=== PATIENT | male | born 1965 | race Caucasian/White ===

== ENCOUNTER 2021-08-02 14:26 | Emergency (ER) | payer SELFPAY ==
[2021-08-02 15:54] LABS: BLOOD UREA NITROGEN,BUN 16 mg/dL (7.0-18.0); CARBON DIOXIDE,CO2 24.7 mmol/L (21.0-32.0); CHLORIDE,CL 106 mmol/L (98-107); GLUCOSE RANDOM 108 mg/dL (74-106); POTASSIUM,K 3.8 mmol/L (3.5-5.1); SODIUM,NA 141 mmol/L (136-148)
--- NOTE | 2021-08-02 16:56 | CR ---
INDICATION: Chest pain TECHNIQUE: Portable upright AP view of the chest COMPARISON: None FINDINGS: The lungs are clear. There is no sizable pleural effusion or pneumothorax. The cardiomediastinal silhouette is normal. The visualized osseous structures are unremarkable. IMPRESSION: No acute intrathoracic process. Dictated by Emmanuel Vazquez MD @ 08/02/2021 4:54:57 PM (Electronically Signed)
[2021-08-02] MEDS ORDERED: Morphine 4 MG/ML Syringe IVPUSH ONE (17:49)
--- NOTE | 2021-08-02 19:44 | EDM.PDOC ---
<Reid Larios - Last Filed: 08/02/21 19:44> ED HPI GENERAL MEDICAL PROBLEM - General Chief Complaint: Chest Pain Stated Complaint: CHEST PAIN Time Seen by Provider: 08/02/21 15:51 - History of Present Illness INITIAL COMMENTS - FREE TEXT/NARRATIVE: CHIEF COMPLAINT(S): Chest pain HISTORY OF PRESENT ILLNESS: This is a 55-year-old man without any significant past medical history who comes to the emergency department with a chief complaint of chest pain. The patient states that earlier this morning he started to experience chest pain located in the central upper chest with radiation to his left arm. He states that the pain was 10 out of 10 and had 2 episodes of vomiting. He describes it as pressure and tearing pain. He states that he was given nitroglycerin and aspirin and states that it is improved since then and is now rating it as 5 out of 10. He states that it initially was not going to his back however since sitting here he has been experiencing some mid back pain in between his shoulder blades. He describes the pain as similar. He denies any relieving factors but states that deep breaths worsen it. He denies any recent travel, recent surgery, prior history of DVT or PE. He denies any significant hypertension. He denies any family history of connective tissue disease. He denies any personal history of aortic aneurysm. He denies any fever, chills, cough or any other symptoms. REVIEW OF SYSTEMS: Constitutional: Denies fever, chills. Eyes: Denies eye pain Ears, Nose, Mouth, & Throat: Denies earache Cardiovascular: Positive for central chest pain Respiratory: Denies shortness of breath Gastrointestinal: Positive for vomiting. Denies diarrhea, medic easier, abdominal pain Genitourinary: Denies hematuria Skin:Denies a rash MSK: Positive for mid back pain and left arm pain Neurological: Denies blurred vision, numbness, tingling, weakness Psychiatric: Denies depression PAST MEDICAL HISTORY: As per history of present illness and as reviewed below otherwise noncontributory. SURGICAL HISTORY: As per history of present illness and as reviewed below otherwise noncontributory. SOCIAL HISTORY: As per history of present illness and as reviewed below oth erwise noncontributory. FAMILY HISTORY: As per history of present illness and as reviewed below otherwise noncontributory. EXAMINATION OF ORGAN SYSTEMS/BODY AREAS: Constitutional: Blood pressure is 144/91, heart rate 80, respiratory rate 18 with an oxygen saturation 97% on room air. Temperature 36.4 General: Well-appearing man who is in no acute distress Psychiatric: Appropriate mood and affect. Eyes: No scleral icterus or conjunctival erythema pupils are equal round and reactive to light. Extraocular movements intact. No nystagmus noted. ENMT: Moist mucous membranes. No pharyngeal erythema Cardiovascular: Regular, rate, and rhythm. No gallops, murmurs, or rubs. Bilateral upper extremity pulses symmetric and intact. No peripheral edema. No JVD. Respiratory: Lungs clear to auscultation bilaterally. No wheezes, rales, or rhonchi. Gastrointestinal: Soft, non-tender, non-distended. Normoactive bowel sounds Genitourinary: No suprapubic tenderness Musculoskeletal: Normal range of motion. Skin: No lesions or abrasions. Neurological: Alert, GCS 15 strength and sensation grossly intact in upper and lower extremities bilaterally. MEDICAL DECISION MAKING AND COURSE IN THE ED WITH INTERPRETATION/REVIEW OF DIAGNOSTIC STUDIES: This is a 55-year-old man without any significant past medical history who comes to the emergency department with acute chest pain which was relieved by nitroglycerin. At this time we did obtain an EKG which was unremarkable and did not reveal any evidence of ischemia. Given his history will obtain a cardiac work-up. In addition given the radiation to the back will obtain a CTA of the thorax abdomen and pelvis to evaluate for aneurysm versus dissection. We will provide the patient with morphine for pain relief. The patient has already received aspirin therefore we will hold off on this at this time. We placed the patient on cardiac monitoring and pulse oximetry. Laboratory: CBC is unremarkable. CMP is unremarkable. Troponin is negative. The radiological images were viewed by myself along with reading the report from the radiologist. Chest x-ray does not reveal any acute cardiopulmonary process. Laboratory: Repeat troponin is negative. Heart Score History: Moderately Suspicious (1) ECG normal (0) Age: 45-64 (1) Risk Factors: No known risk factors (0) Initial Troponin: </= normal limit (0) Total Score: 2 At the time of signout patient's pain had improved. He was pending CTA final reports and final disposition. Patient was signed out to oncoming night team physician DISPOSITION: Patient was signed out to oncoming night team physician CONDITION: Fair PROCEDURES: None FINAL IMPRESSION(S)/DIAGNOSES: 1. Acute chest pain 2. Acute back pain Reid Larios M.D. chest pain, sternal Pain Score (Numeric/FACES): 2 - Related Data Allergies Allergy/AdvReac Type Severity Reaction Status Date / Time acetaminophen [From Percocet] Allergy Rash Verified 08/02/21 14:31 oxycodone [From Percocet] Allergy Rash Verified 08/02/21 14:31 Sulfa (Sulfonamide Allergy Cannot Verified 08/02/21 14:32 Antibiotics) Remember Home Meds: Home Meds Aspirin 1 tab PO DAILY 08/02/21 [History] Cyclobenzaprine [Flexeril] 10 mg PO TID PRN #20 tab 08/02/21 [Rx] Omeprazole Magnesium [Prilosec Otc] 20 mg PO BID #30 tablet. 08/02/21 [Rx] Past Medical History - Infectious Disease History Infectious Disease History: Reports: Measles - Past Surgical History GI Surgical History: Reports: Other (See Below) Other GI Surgeries/Procedures: Spleen Neurological Surgical History: Reports: Other (See Below) Other Neurological Surgeries/Procedures: Lower Back Social & Family History - Family History Family Medical History: No Pertinent Family History - Tobacco Use Tobacco Use Status *Q: Current Every Day Tobacco User Years of Tobacco use: 40 Packs/Tins Daily: 0.1 - Alcohol Use Days Per Week of Alcohol Use: 7 Number of Drinks Per Day: 1 Total Drinks Per Week: 7 - Recreational Drug Use Recreational Drug Use: No ED ROS GENERAL - Review of Systems Review Of Systems: See Below ED EXAM, GENERAL - Physical Exam Exam: See Below Departure - Departure Disposition: Home, Self-Care 01 Clinical Impression: Musculoskeletal back pain, Esophagitis - Discharge Information Instructions: Nonspecific Chest Pain, Adult, [id number], Esophagitis, Acute Back Pain, Adult Referrals: Dheeraj Manriquez MD [Primary Care Provider] - Forms: ED Department Discharge Additional Instructions: Your seen and evaluated in ER today secondary to pain in your chest and back. Your findings on the CAT scan revealed that you might have some inflammation of your esophagus. As we discussed, please avoid spicy food and late night meals. Please try to lift the head of your bed up slightly to decrease the amount of acid that can enter into your esophagus. You will be given a prescription for Prilosec OTC 20 mg take twice a day for 30 days. Please make an appointment to follow-up with your primary care physician this week for reevaluation and reassessment. You will also be given a prescription for cyclobenzaprine to help with your back pain. The following information is given to patients seen in the emergency department who are being discharged to home. This information is to outline your options for follow-up care. We provide all patients seen in our emergency department with a follow-up referral. The need for follow-up, as well as the timing and circumstances, are variable depending upon the specifics of your emergency department visit. If you don't have a primary care physician on staff, we will provide you with a referral. We always advise you to contact your personal physician following an emergency department visit to inform them of the circumstance of the visit and for follow-up with them and/or the need for any referrals to a consulting specialist. The emergency department will also refer you to a specialist when appropriate. This referral assures that you have the opportunity for follow-up care with a specialist. All of these measure are taken in an effort to provide you with optimal care, which includes your follow-up. Under all circumstances we always encourage you to contact your private physician who remains a resource for coordinating your care. When calling for follow-up care, please make the office aware that this follow-up is from your recent emergency room visit. If for any reason you are refused follow-up, please contact the [facility] Emergency Department at and asked to speak to the emergency department charge nurse. [facility] - [facility] [address] [place] [id number] [address] [id number] <Rajeev Alcaraz - Last Filed: 08/02/21 20:27> ED HPI GENERAL MEDICAL PROBLEM - History of Present Illness INITIAL COMMENTS - FREE TEXT/NARRATIVE: 8:21 PM: Signout received at 7 PM. Patient had CTA pending secondary to pain in his chest and back. Patient's CTA of chest abdomen pelvis reveals probable mild wall thickening of the distal esophagus and question of trace periesophageal fluid, potentially representing esophagitis. There is no evidence of aortic dissection or PE. Given CT scan findings, will resume with plan as outlined by Dr. Enriquez discharge patient to home. Patient was reevaluated by me independently and I am in agreement with Dr. Larios's assessment and plan for discharge. Patient will get started on Flexeril as a muscle relaxant for the pain in his back as well as Prilosec to assist with his esophagitis. I discussed the results and gave the patient a copy of his CT report to keep with him to take his primary care physician for further evaluation. Repeat evaluation in the ED reveals a nontoxic stable appearing individual who appears to be in good spirits. Patient's vital signs were reviewed and within normal limits. Patient's labs were reviewed and are all within normal limits. Patient has been instructed to return to the ED if he develops any new or concerning symptoms and to otherwise follow-up with primary care doctor this week for reevaluation of his symptoms. Reassessment at the time of disposition demonstrates that the patient is in no acute distress. The patient has remained stable throughout the entire ED visit and is without objective evidence for acute process requiring urgent intervention or hospitalization. The patient is stable for discharge, counseling is provided as documented above, discussed symptomatic treatment and specific conditions for return. I have spoken with the patient/caregiver and discussed todays findings, in addition to providing specific details for the plan of care. Questions are answered and there is agreement with the plan. Course - Vital Signs Last Recorded V/S: Last Vital Signs Temp 97.5 F 08/02/21 14:27 Pulse 80 08/02/21 14:27 Resp 18 08/02/21 14:27 BP 144/91 H 08/02/21 14:27 Pulse Ox 97 08/02/21 14:27 - Orders/Labs/Meds Labs: Laboratory Tests 08/02/21 08/02/21 08/02/21 Range/Units 14:40 14:40 14:40 WBC 7.13 (4.0-11.0) K/uL RBC 4.48 L (4.50-5.90) M/uL Hgb 14.6 (13.0-17.0) g/dL Hct 40.5 (38.0-50.0) % MCV 90.4 (80.0-98.0) fL MCH 32.6 H (27.0-32.0) pg MCHC 36.0 (31.0-37.0) g/dL RDW Std Deviation 41.6 (28.0-62.0) fl RDW Coeff of Yudith 13 (11.0-15.0) % Plt Count 205 (150-400) K/uL MPV 9.80 (7.40-12.00) fL Neut % (Auto) 75.3 (48.0-80.0) % Lymph % (Auto) 13.0 L (16.0-40.0) % [place] % (Auto) 7.2 (0.0-15.0) % Eos % (Auto) 4.1 (0.0-7.0) % Baso % (Auto) 0.4 (0.0-1.5) % Neut # (Auto) 5.4 (1.4-5.7) K/uL Lymph # (Auto) 0.9 (0.6-2.4) K/uL [place] # (Auto) 0.5 (0.0-0.8) K/uL Eos # (Auto) 0.3 (0.0-0.7) K/uL Baso # (Auto) 0.0 (0.0-0.1) K/uL Nucleated RBC % 0.0 /100WBC Nucleated RBCs # 0 K/uL Sodium 141 (136-148) mmol/L Potassium 3.8 (3.5-5.1) mmol/L Chloride 106 (98-107) mmol/L Carbon Dioxide 24.7 (21.0-32.0) mmol/L BUN 16 (7.0-18.0) mg/dL Creatinine 1.1 (0.8-1.3) mg/dL Est Cr Clr Drug Dosing 71.68 mL/min Estimated GFR (MDRD) > 60.0 ml/min Glucose 108 H (74-106) mg/dL Calcium 8.9 (8.5-10.1) mg/dL Total Bilirubin 0.8 (0.2-1.0) mg/dL AST 24 (15-37) IU/L ALT 27 (14-63) IU/L Alkaline Phosphatase 72 (46-116) U/L Troponin I < 0.050 (0.000-0.056) ng/mL Total Protein 7.1 (6.4-8.2) g/dL Albumin 4.2 (3.4-5.0) g/dL Globulin 2.9 (2.6-4.0) g/dL Albumin/Globulin Ratio 1.4 (0.9-1.6) 08/02/21 Range/Units 17:35 WBC (4.0-11.0) K/uL RBC (4.50-5.90) M/uL Hgb (13.0-17.0) g/dL Hct (38.0-50.0) % MCV (80.0-98.0) fL MCH (27.0-32.0) pg MCHC (31.0-37.0) g/dL RDW Std Deviation (28.0-62.0) fl RDW Coeff of Yudith (11.0-15.0) % Plt Count (150-400) K/uL MPV (7.40-12.00) fL Neut % (Auto) (48.0-80.0) % Lymph % (Auto) (16.0-40.0) % [place] % (Auto) (0.0-15.0) % Eos % (Auto) (0.0-7.0) % Baso % (Auto) (0.0-1.5) % Neut # (Auto) (1.4-5.7) K/uL Lymph # (Auto) (0.6-2.4) K/uL [place] # (Auto) (0.0-0.8) K/uL Eos # (Auto) (0.0-0.7) K/uL Baso # (Auto) (0.0-0.1) K/uL Nucleated RBC % /100WBC Nucleated RBCs # K/uL Sodium (136-148) mmol/L Potassium (3.5-5.1) mmol/L Chloride (98-107) mmol/L Carbon Dioxide (21.0-32.0) mmol/L BUN (7.0-18.0) mg/dL Creatinine (0.8-1.3) mg/dL Est Cr Clr Drug Dosing mL/min Estimated GFR (MDRD) ml/min Glucose (74-106) mg/dL Calcium (8.5-10.1) mg/dL Total Bilirubin (0.2-1.0) mg/dL AST (15-37) IU/L ALT (14-63) IU/L Alkaline Phosphatase (46-116) U/L Troponin I < 0.050 (0.000-0.056) ng/mL Total Protein (6.4-8.2) g/dL Albumin (3.4-5.0) g/dL Globulin (2.6-4.0) g/dL Albumin/Globulin Ratio (0.9-1.6) Meds: Medications Discontinued Medications Generic Name Dose Route Start Last Admin Trade Name Freq PRN Reason Stop Dose Admin Morphine Sulfate 4 mg 08/02/21 17:49 08/02/21 18:57 Morphine 4 Mg/Ml Syringe IVPUSH 08/02/21 17:50 4 mg ONETIME ONE Administration Departure - Departure Time of Disposition: 20:23 Condition: Good Sepsis Event Note (ED) - Focused Exam Vital Signs: Vital Signs Temp Pulse Resp BP Pulse Ox 08/02/21 14:27 97.5 F 80 18 144/91 H 97
--- NOTE | 2021-08-02 20:17 | CT ---
INDICATION: Sudden onset middle chest pain radiating to back. Evaluate for aortic dissection. CT CHEST, ABDOMEN, AND PELVIS WITHOUT AND WITH CONTRAST TECHNIQUE: Multidetector CT imaging was performed through the chest, abdomen, and pelvis prior to and following intravenous contrast administration using 100 mL Isovue 370. Coronal and sagittal reconstructions were generated. COMPARISON: None. FINDINGS: Lungs and airways: Mild bibasilar lung subsegmental atelectasis and/or scarring. No confluent consolidation, suspicious nodules, or masses. Central airways are patent. Pleura and pleural spaces: No pleural effusions or pneumothorax. Heart and mediastinum: Normal heart size. No significant pericardial effusion. No pathologically enlarged mediastinal lymph nodes. Vascular structures: Normal caliber thoracic and abdominal aorta without evidence of dissection or intramural hematoma. No evidence of pulmonary emboli.. Chest wall and axillae: No mass or axillary lymphadenopathy. Liver and spleen: Unremarkable liver. Capsular calcification along the lateral aspect of the spleen likely related to remote injury. Gallbladder and bile ducts: No gallbladder wall thickening or calcified gallstones. No biliary dilation identified. Pancreas, adrenals, and retroperitoneum: No pancreatic or adrenal mass. No pathologically enlarged lymph nodes identified in the abdomen or pelvis. Kidneys, ureters, and urinary bladder: No renal masses or hydronephrosis. No bladder mass or definite wall thickening. Gastrointestinal tract and peritoneum: Suggestion of concentric wall thickening of the distal esophagus just above the esophagogastric junction, as on image 468 of series 501, and question of small amount of fluid adjacent to the distal esophagus. No free air in the mediastinum to suggest esophageal perforation. Normal caliber bowel without wall thickening or obstruction. Normal appendix. No free air, abscess, or significant free fluid in the abdomen or pelvis. Abdominal wall: Postoperative changes in the anterior abdominal wall with sutures in the midline over the epigastric region. Reproductive organs: Mild prostatomegaly. Bones: Moderate degenerative disc disease at L5-S1 and mild degenerative changes elsewhere throughout the thoracic and lumbar spine. IMPRESSION: 1. Probable mild wall thickening of the distal esophagus and question of trace periesophageal fluid, potentially representing esophagitis. 2. No evidence of aortic dissection. 3. Nonacute additional findings as detailed above. PAUL ANGULO MD [facility] Dictated by Cirilo Angulo MD @ 08/02/2021 8:11:02 PM Please note that all CT scans at this facility use dose modulation, iterative reconstruction, and/or weight-based dosing when appropriate to reduce radiation dose to as low as reasonably achievable. Dictated by: Cirilo Angulo MD @ 08/02/2021 20:16:55 (Electronically Signed)
--- NOTE | 2021-08-02 21:05 | PCM.EKG ---
#1 Interpretation EKG Date: 08/02/21 Time: 14:29 Rhythm: NSR Rate (Beats/Min): 80 [place]: Normal P-Wave: Present QRS: Normal ST-T: Normal QT: Normal Comparison: NA - No Prior EKG EKG Interpretation Comments: Sinus Rhythm #2 Interpretation EKG Date: 08/02/21 Time: 17:31 Rhythm: NSR Rate (Beats/Min): 77 [place]: Normal P-Wave: Present QRS: Normal ST-T: Normal QT: Normal Comparison: No Change (today) EKG Interpretation Comments: Sinus Rhythm
== END 2021-08-02 20:40 | disposition home or self-care (01) ==
LOC: MW.ED 14:26
DX: K20.90 Esophagitis, unspecified without bleeding (principal); M54.6 Pain in thoracic spine; Z88.5 Allergy status to narcotic agent; Z88.2 Allergy status to sulfonamides; Z88.8 Allergy status to other drugs, medicaments and biological substances; Z79.899 Other long term (current) drug therapy; Z72.0 Tobacco use; Z79.82 Long term (current) use of aspirin
CPT/HCPCS: 36415; 71045; 71275; 74174; 80053; 84484; 85025; 93005; 96374; 99285; J2270